=== PATIENT | female | born 1980 | race Caucasian/White ===

== ENCOUNTER 2018-12-07 02:21 | Emergency (ER) | payer OTHER ==
[2018-12-07 02:39] VITALS: PULSE 68; TEMP 98.5; BMI 21.7
--- NOTE | 2018-12-07 03:15 | PDOC ---
Attending Attestation - Resident Resident Name: Danny Aguiar - ED Attending Attestation I have performed the following: I have examined & evaluated the patient, The case was reviewed & discussed with the resident, I agree w/resident's findings & plan - HPI HPI: 12/07/18 06:09 see resident hpi - Physicial Exam PE: 12/07/18 06:10 agree with resident exam - Medical Decision Making 12/07/18 06:11 38-year-old female with an episode of lightheadedness and shortness of breath with tingling to the extremities History most consistent with hyperventilatory syndrome now completely resolved Labs and EKG within normal limits Patient ambulated briskly with no difficulty out of the emergency department Recommendation for follow-up with primary care physician
[2018-12-07] MEDS ORDERED: SODIUM CHLORIDE 1,000 ML IV STA (03:21)
[2018-12-07] MEDS ORDERED: ACETAMINOPHEN 1000 MG/100 ML VIAL (NON FORMULARY) IVPB ONE (03:21)
--- NOTE | 2018-12-07 03:24 | PDOC ---
History of Present Illness - General Chief Complaint: Shortness of Breath Stated Complaint: NUMBNESS, SOB Time Seen by Provider: 12/07/18 03:14 History Source: Patient Exam Limitations: No Limitations - History of Present Illness Initial Comments: 38 yo F with a hx of gastritis presents to the emergency department with SOB with onset at rest that occurred at 1 am today. Per the patient, she states she was feeling "like I can't catch my breath". She denies chest pain, but endorses chills and lightheadedness. Denies the following: fevers, nausea, vomiting, dysuria, hematuria, diarrhea, hematochezia, leg pain/swelling, recent travels, hx of DVT/PE, recent surgeries, and recent immobilizations. Shx: None Allergies: NKDA Meds: None Social: Denies tobacco. Endorses hookah and alcohol. Past History - Past Medical History Allergies/Adverse Reactions: Allergies Allergy/AdvReac Type Severity Reaction Status Date / Time No Known Allergies Allergy Verified 12/07/18 02:39 - Psycho Social/Smoking Cessation Hx Smoking History: Current some day smoker Have you smoked in the past 12 months: Yes Information on smoking cessation initiated: No Hx Alcohol Use: Yes Drug/Substance Use Hx: No Review of Systems - Review of Systems Able to Perform ROS?: Yes Is the patient limited Thai proficient: No Constitutional: Yes: Chills. No: Diaphoresis, Fever HEENTM: No: Eye Pain, Ear Pain, Nose Pain, Throat Pain, Mouth Pain Respiratory: Yes: Shortness of Breath. No: Cough, Hemoptysis Cardiac (ROS): Yes: Lightheadedness. No: Chest Pain, Palpitations, Syncope, Chest Tightness ABD/GI: Yes: Abdominal cramping. No: Constipated, Diarrhea, Nausea, Rectal Bleeding, Vomiting, Tarry Stools : No: Burning, Dysuria, Hematuria, Incontinence Musculoskeletal: No: Back Pain, Joint Pain, Neck Pain Integumentary: No: Bruising, Erythema, Rash Neurological: No: Headache, Numbness, Tingling, Tremors Endocrine: No: Unexplained Weight Gain Hematologic/Lymphatic: No: Anemia *Physical Exam - Vital Signs Last Vital Signs Temp Pulse Resp BP Pulse Ox 98.5 F 68 16 117/70 97 12/07/18 02:21 12/07/18 02:21 12/07/18 02:21 12/07/18 02:21 12/07/18 02:21 - Physical Exam General Appearance: Yes: Nourished, Appropriately Dressed. No: Apparent Distress, Intoxicated HEENT: positive: EOMI, QING, Normal Voice, Symmetrical, Pharynx Normal, Hearing Grossly Normal. negative: Pale Conjunctivae, Scleral Icterus (R), Scleral Icterus (L), Muffled/Hoarse voice, Pharyngeal Erythema, Tonsillar Exudate, Tonsillar Erythema, Sinus Tenderness Neck: positive: Trachea midline, Supple. negative: Tender, Lymphadenopathy (R) , Lymphadenopathy (L), Tender lateral, Tender midline Respiratory/Chest: positive: Lungs Clear, Normal Breath Sounds. negative: Chest Tender, Respiratory Distress, Accessory Muscle Use Cardiovascular: positive: Regular Rhythm, Regular Rate, S1, S2. negative: Systolic Murmur Gastrointestinal/Abdominal: positive: Normal Bowel Sounds, Tender (RLQ), Flat, Soft Lymphatic: negative: Adenopathy Musculoskeletal: positive: Normal Inspection. negative: CVA Tenderness, Vertebral Tenderness Extremity: positive: Normal Capillary Refill, Normal Inspection, Normal Range of Motion Integumentary: positive: Normal Color, Dry, Warm Neurologic: positive: structural engineering technician II-XII NML intact, Fully Oriented, Alert, Normal Mood/ Affect ED Treatment Course - LABORATORY CBC & Chemistry Diagram: 12/07/18 03:52 12/07/18 03:52 Medical Decision Making - Medical Decision Making 38 yo F with a hx of gastritis presents to the emergency department with SOB with onset at rest that occurred at 1 am today. Initial vitals: Initial Vital Signs Temp Pulse Resp BP Pulse Ox 98.5 F 68 16 117/70 97 12/07/18 02:21 12/07/18 02:21 12/07/18 02:21 12/07/18 02:21 12/07/18 02:21 Work up: patient presents with SOB. on physical exam, she has RLQ tenderness. will rule out UTI. does not have complaint of RLQ pain, less likely to be appendicitis Laboratory Tests 12/07/18 12/07/18 12/07/18 03:52 03:52 03:52 WBC 4.9 RBC 4.16 Hgb 12.5 Hct 37.9 MCV 91.1 MCH 30.1 MCHC 33.1 RDW 14.1 Plt Count 138 MPV 10.8 Absolute Neuts (auto) 2.8 Neutrophils % 58.1 Lymphocytes % 32.8 Monocytes % 7.8 Eosinophils % 0.8 Basophils % 0.5 Nucleated RBC % 0 Sodium Potassium Chloride Carbon Dioxide Anion Gap BUN Creatinine Est GFR (CKD-EPI)AfAm Est GFR (CKD-EPI)NonAf Random Glucose Calcium Total Bilirubin AST ALT Alkaline Phosphatase Creatine Kinase 158 Creatine Kinase Index 0.8 CK-MB (CK-2) 1.3 Troponin I < 0.02 Total Protein Albumin Beta HCG, Quant < 1.0 Urine Color Urine Appearance Urine pH Ur Specific [place] Urine Protein Urine Glucose (UA) Urine Ketones Urine Blood Urine Nitrite Urine Bilirubin Urine Urobilinogen Ur Leukocyte Esterase 12/07/18 12/07/18 03:52 03:52 WBC RBC Hgb Hct MCV MCH MCHC RDW Plt Count MPV Absolute Neuts (auto) Neutrophils % Lymphocytes % Monocytes % Eosinophils % Basophils % Nucleated RBC % Sodium 138 Potassium 3.8 Chloride 101 Carbon Dioxide 30 Anion Gap 7 L BUN 10.9 Creatinine 0.7 Est GFR (CKD-EPI)AfAm 128.28 Est GFR (CKD-EPI)NonAf 110.69 Random Glucose 94 Calcium 9.2 Total Bilirubin 0.3 AST 15 ALT 14 Alkaline Phosphatase 70 Creatine Kinase Creatine Kinase Index CK-MB (CK-2) Troponin I Total Protein 7.0 Albumin 4.1 Beta HCG, Quant Urine Color Yellow Urine Appearance Clear Urine pH 8.0 Ur Specific [place] 1.007 L Urine Protein Negative Urine Glucose (UA) Negative Urine Ketones Negative Urine Blood Negative Urine Nitrite Negative Urine Bilirubin Negative Urine Urobilinogen 0.2 Ur Leukocyte Esterase Negative labs within normal limits CXR shows no acute pathologies EKG shows NSR with 1st degree AV block without ST elevations or depressions. Patient was given 1 L of NS and tylenol IV. Patient was reassessed after labwork and imaging returned. Patient states she has significant improvement in symptoms. Will be discharged with pMD follow up. Dispo: Discharge Discharge - Discharge Information Problems reviewed: Yes Clinical Impression/Diagnosis: Abdominal pain Condition: Fair Disposition: HOME - Admission No - Follow up/Referral Referrals: Gem Choudhary MD [Primary Care Provider] - Scott Porter MD [Staff Physician] - [facility] [place] [facility] [place] [Provider Group] Stuart Manuel MD [Staff Physician] - Tim Jensen MD [Staff Physician] - - Patient Discharge Instructions Patient Printed Discharge Instructions: DI for Shortness of Breath Additional Instructions: You were seen in the emergency department for the evaluation of your shortness of breath. Your labs were within normal limits. Your chest xray did not show an acute pathology. Please follow up with your primary medical doctor in 1 week after discharge. In addition, please follow up with the clay machine operator within 1 week after discharge for further work up. Please return to the emergency department if you have worsening symptoms or new concerning symptoms. Thank you. - Post Discharge Activity Work/Back to School Note: Back to Work, Back to School
[2018-12-07] MEDS ORDERED: ACETAMINOPHEN INJECTION 100 ML IVPB ONE (03:45)
[2018-12-07 04:07] LABS: URINE APPEARANCE CLEAR; URINE BILIRUBIN NEGATIVE (NEGATIVE); URINE COLOR YELLOW; URINE GLUCOSE (UA) NEGATIVE (NEGATIVE); URINE KETONE NEGATIVE (NEGATIVE); URINE LEUK ESTERASE NEGATIVE (NEGATIVE); URINE NITRITE NEGATIVE (NEGATIVE); URINE PROTEIN NEGATIVE (NEGATIVE); URINE UROBILINOGEN 0.2 mg/dL (0.2-1.0)
[2018-12-07 04:10] LABS: BASO % 0.5 % (0-2.0); EOS % 0.8 % (0-4.5); HEMATOCRIT 37.9 % (32.4-45.2); HEMOGLOBIN 12.5 GM/dL (10.7-15.3); LYMPH % 32.8 % (8-40); MCH 30.1 pg (25.7-33.7); MCHC 33.1 g/dl (32.0-36.0); MEAN CELL VOLUME 91.1 fl (80-96); MEAN PLT VOLUME 10.8 fl (7.5-11.1); MONO % 7.8 % (3.8-10.2); NEUT % 58.1 % (42.8-82.8); PLATELET COUNT 138 K/MM3 (134-434); RBC 4.16 M/mm3 (3.60-5.2); RDW 14.1 % (11.6-15.6); WHITE BLOOD COUNT 4.9 K/mm3 (4.0-10.0)
[2018-12-07 04:29] LABS: ALBUMIN 4.1 g/dl (3.4-5.0); BILIRUBIN,TOTAL 0.3 mg/dL (0.2-1); BLOOD UREA NITROGEN 10.9 mg/dL (7-18); CALCIUM 9.2 mg/dL (8.5-10.1); CREATININE 0.7 mg/dL (0.55-1.3); POTASSIUM 3.8 mmol/L (3.5-5.1)
[2018-12-07 05:38] VITALS: BP 110/81
--- NOTE | 2018-12-07 12:08 | EKG ---
Test Reason : Blood Pressure : / mmHG Vent. Rate : 073 BPM Atrial Rate : 073 BPM P-R Int : 216 ms QRS Dur : 094 ms QT Int : 412 ms P-R-T Axes : 085 076 055 degrees QTc Int : 453 ms SINUS RHYTHM WITH 1ST DEGREE A-V BLOCK POSSIBLE LEFT ATRIAL ENLARGEMENT BORDERLINE ECG NO PREVIOUS ECGS AVAILABLE Confirmed by Asael Nelson MD ([id number]) on 12/07/2018 12:08:01 PM Referred By: Confirmed By:Asael Nelson MD
== END 2018-12-07 06:30 | disposition home or self-care (01) ==
LOC: JER 02:21
PROC: 3E033NZ Introduction of Analgesics, Hypnotics, Sedatives into Peripheral Vein, Percutaneous Approach (ICD-10-PCS; principal; 2018-12-07)
DX: R10.9 Unspecified abdominal pain (principal); Z87.19 Personal history of other diseases of the digestive system
CPT/HCPCS: 36415; 71046-TC-FY; 80053; 81003; 82550; 82553; 84484; 84702; 85025; 87086; 87186; 93005; 93010; 99283-25; J0131; J7030

== ENCOUNTER 2020-12-06 11:34 | Emergency (ER) | payer OTHER ==
[2020-12-06 12:02] VITALS: BP 125/75; PULSE 96; TEMP 97.9; BMI 23.8
[2020-12-06 12:30] LABS: HCG,QUALITATIVE URINE Positive
== END 2020-12-06 13:21 | disposition home or self-care (01) ==
LOC: FER 11:34
PROC: 3E033NZ Introduction of Analgesics, Hypnotics, Sedatives into Peripheral Vein, Percutaneous Approach (ICD-10-PCS; principal; 2020-12-06)
PROC: 3E0337Z Introduction of Electrolytic and Water Balance Substance into Peripheral Vein, Percutaneous Approach (ICD-10-PCS; 2020-12-06)
DX: B37.3 Candidiasis of vulva and vagina (principal)
CPT/HCPCS: 36415; 81003; 84703; 87070; 87086; 87205; 87491; 87591; 99284-25

== ENCOUNTER 2021-08-10 16:30 | Inpatient (IN) | payer OTHER ==
[2021-08-10] MEDS: DEXTROSE 5%-LACTATED RINGERS 1,000 ML IV SCH (17:45)
[2021-08-10 20:15] LABS: BASO % 0.1 % (0-2.0); EOS % 0.1 % (0-4.5); HEMATOCRIT 33.6 % (32.4-45.2); HEMOGLOBIN 11.3 GM/dL (10.7-15.3); LYMPH % 5.4 % (8-40); MCH 31.5 pg (25.7-33.7); MCHC 33.5 g/dl (32.0-36.0); MEAN CELL VOLUME 94.1 fl (80-96); MEAN PLT VOLUME 10.9 fl (7.5-11.1); MONO % 8.2 % (3.8-10.2); NEUT % 86.2 % (42.8-82.8); PLATELET COUNT 84 10^3/uL (134-434); RBC 3.57 M/mm3 (3.60-5.2); RDW 13.8 % (11.6-15.6); WHITE BLOOD COUNT 8.8 K/mm3 (4.0-10.0)
[2021-08-10 20:20] LABS: INR 0.92 (0.83-1.09); PROTHROMBIN TIME (PATIENT) 10.6 SEC (9.7-13.0)
[2021-08-10 20:23] LABS: ACTIVATED PTT 26.2 SECONDS (25.2-36.5)
[2021-08-10 20:35] LABS: ALBUMIN 2.8 g/dl (3.4-5.0); CALCIUM 8.7 mg/dL (8.5-10.1)
[2021-08-10 20:36] LABS: BLOOD UREA NITROGEN 5.7 mg/dL (7-18)
[2021-08-10 20:38] LABS: CREATININE 0.6 mg/dL (0.55-1.3)
[2021-08-10 20:40] LABS: BILIRUBIN,TOTAL 0.5 mg/dL (0.2-1); TOT PROT 6.3 g/dl (6.4-8.2)
[2021-08-10] MEDS ORDERED: DINOPROSTONE 10 MG VAGINAL SUPPOSITORY VG ONE (21:00)
[2021-08-10] MEDS ORDERED: PROMETHAZINE HCL 25 MG/1 ML VIAL IVPUSH ONE (21:27)
[2021-08-10] MEDS ORDERED: BUTORPHANOL TARTRATE 1 MG/ML VIAL IVPB PRN (21:27)
[2021-08-10] MEDS ORDERED: OXYTOCIN 30 UNITS in 0.9% NS 30 UNIT/500 ML INFUS.BAG IVPB SCH (21:45)
[2021-08-10] MEDS ORDERED: OXYTOCIN 30 UNITS in 0.9% NS 30 UNIT/500 ML INFUS.BAG IVPB ONE (21:55)
[2021-08-10] MEDS ORDERED: BUTORPHANOL TARTRATE 2 MG/ML VIAL ONE (23:07)
[2021-08-10] MEDS ORDERED: PROMETHAZINE HCL 25 MG/1 ML VIAL ONE (23:08)
[2021-08-11] MEDS: DEXTROSE 5%-LACTATED RINGERS 1,000 ML IV SCH
[2021-08-11 03:03] VITALS: BMI 29.8
[2021-08-11] MEDS: ELECTROLYTE-148 SOLN 1,000 ML IV SCH (04:30)
[2021-08-11 04:43] VITALS: BP 134/76; PULSE 90; TEMP 98.2
== END 2021-08-11 05:05 | disposition short-term general hospital (02) | DRG 833 ==
LOC: JDEL 16:30 → JLDR 20:30
PROVIDERS: ADMIT Obstetrics & Gynecology; ATTEND Obstetrics & Gynecology
DX: O99.113 Other diseases of the blood and blood-forming organs and certain disorders involving the immune mechanism complicating pregnancy, third trimester (principal); D69.6 Thrombocytopenia, unspecified; O48.0 Post-term pregnancy; O47.1 False labor at or after 37 completed weeks of gestation; Z3A.40 40 weeks gestation of pregnancy
CPT/HCPCS: 36415; 80053; 85025; 85032; 85610; 85730; 86780; 86850; 86900; 86901; C9803-CS; U0003; U0005

== ENCOUNTER 2021-10-19 01:53 | Emergency (ER) | payer OTHER ==
[2021-10-19 02:04] VITALS: BP 118/75; PULSE 55; RESP 18; TEMP 98.2; BMI 25.0
[2021-10-19] MEDS ORDERED: LACTATED RINGERS SOLUTION 1000 ML INFUS.BAG IV ONE (03:08)
[2021-10-19] MEDS ORDERED: ACETAMINOPHEN 1000 MG/100 ML BAG IVPB ONE (03:08)
[2021-10-19 03:33] LABS: BASO % 0.4 % (0-2.0); EOS % 0.4 % (0-4.5); HEMATOCRIT 37.8 % (32.4-45.2); HEMOGLOBIN 12.7 GM/dL (10.7-15.3); LYMPH % 38.6 % (8-40); MCH 30.3 pg (25.7-33.7); MCHC 33.5 g/dl (32.0-36.0); MEAN CELL VOLUME 90.4 fl (80-96); MEAN PLT VOLUME 10.6 fl (7.5-11.1); MONO % 9.6 % (3.8-10.2); PLATELET COUNT 124 10^3/uL (134-434); RBC 4.18 M/mm3 (3.60-5.2); RDW 13.7 % (11.6-15.6); WHITE BLOOD COUNT 3.7 K/mm3 (4.0-10.0)
[2021-10-19] MEDS ORDERED: ACETAMINOPHEN INJECTION 100 ML IVPB ONE (03:35)
[2021-10-19 03:43] LABS: INR 0.96 (0.83-1.09)
[2021-10-19 03:46] LABS: BLOOD UREA NITROGEN 8.8 mg/dL (7-18)
[2021-10-19 03:49] LABS: CREATININE 0.7 mg/dL (0.55-1.3)
[2021-10-19 03:50] LABS: BILIRUBIN,TOTAL 0.3 mg/dL (0.2-1); TOT PROT 7.2 g/dl (6.4-8.2)
== END 2021-10-19 08:34 | disposition left against medical advice (07) ==
LOC: JER 01:53
PROC: 3E0333Z Introduction of Anti-inflammatory into Peripheral Vein, Percutaneous Approach (ICD-10-PCS; principal; 2021-10-19)
DX: N93.9 Abnormal uterine and vaginal bleeding, unspecified (principal)
CPT/HCPCS: 0241U-QW; 36415; 76830-TC; 80053; 84703; 85025; 85610; 85730; 86850; 86900; 86901; 93005; 93010; 99284-25